=== PATIENT | male | born 1950 | race Caucasian/White ===

== ENCOUNTER 2021-08-15 09:19 | Outpatient (CLI) | payer MEDICARE ==
[2021-08-16 11:50] LABS: SARS-CoV-2 PCR by NAA Not Detected (NotDetected)
== END 2021-08-15 09:20 | disposition home or self-care (01) ==
LOC: CSHLAB 09:19
PROVIDERS: ATTEND Internal Medicine Pulmonary Disease
DX: Z20.822 Contact with and (suspected) exposure to COVID-19 (principal)
CPT/HCPCS: U0003; U0005

== ENCOUNTER 2021-08-18 09:09 | Outpatient (CLI) | payer MEDICARE | END 2021-08-18 09:10 | disposition home or self-care (01) | LOC: CSHCP 09:09 | PROVIDERS: ATTEND Internal Medicine Pulmonary Disease | DX: J98.01 Acute bronchospasm (principal); R94.2 Abnormal results of pulmonary function studies | CPT/HCPCS: 94060; 94726; 94729; 94760 ==

== ENCOUNTER 2021-09-21 16:35 | Emergency (ER) | payer MEDICARE ==
[2021-09-21 18:42] LABS: Bilirubin Neg (Negative); Blood, Urine Negative (Negative); Clarity Clear (Clear); Glucose, Urine (Dipstick) Normal (Negative); Ketone, Urine Negative (Negative); Leukocyte Negative (Negative); Nitrite Negative (Negative); Protein, Urine (Dipstick) Negative (Neg-Trace); Specific Gravity, Urine 1.005 (1.002-1.036); Urobilinogen Normal mg/dL (Less than 2)
== END 2021-09-21 19:08 | disposition home or self-care (01) ==
LOC: CSHERS 16:35
DX: M79.10 Myalgia, unspecified site (principal); M54.50 Low back pain, unspecified; I10 Essential (primary) hypertension; E78.5 Hyperlipidemia, unspecified; Z79.899 Other long term (current) drug therapy; Z79.82 Long term (current) use of aspirin
CPT/HCPCS: 81003; 99283

== ENCOUNTER 2025-06-11 09:13 | Emergency (ER) | payer MEDICARE, OTHER ==
[2025-06-11] MEDS ORDERED: Lidocaine 1% PF 5 ML VIAL ONE ×2 (10:15→10:18)
== END 2025-06-11 10:55 | disposition home or self-care (01) ==
LOC: CSHERS 09:13
DX: L02.411 Cutaneous abscess of right axilla (principal); M51.27 Other intervertebral disc displacement, lumbosacral region; I10 Essential (primary) hypertension
CPT/HCPCS: 10060; 72131